=== PATIENT | male | born 1980 ===

== ENCOUNTER 2017-04-29 00:28 | Emergency (ER) | payer SELFPAY ==
[2017-04-29 00:39] VITALS: BP 131/81; PULSE 64; RESP 18; TEMP 98
--- NOTE | 2017-04-29 01:22 | ED PDOC ---
HPI: Skin/Bite Injury Time Seen by Provider: 04/29/17 00:42 Chief Complaint (Nursing): Headache Chief Complaint (Provider): scalp pain History Per: Patient History/Exam Limitations: no limitations Onset/Duration Of Symptoms: Days (1 month) Current Symptoms Are (Timing): Still Present Quality Of Symptoms: Painful Additional History Per: Patient Additional Complaint(s): 37 y/o male presents for eval of painful lump to right scalp x 1 month. Denies fever, nausea/vomiting, headache, dizziness, drainage from site, bleeding from site. No medication taken for pain relief thus far. Past Medical History Reviewed: Historical Data, Nursing Documentation, Vital Signs Vital Signs: Last Vital Signs Temp 98 F 04/29/17 00:36 Pulse 64 04/29/17 00:36 Resp 18 04/29/17 00:36 BP 131/81 04/29/17 00:36 Pulse Ox - Medical History PMH: HTN - Surgical History Surgical History: No Surg Hx - Family History Family History: States: Unknown Family Hx - Home Medications Home Medications: Ambulatory Orders Medication Instructions Recorded Mupirocin 2% Cream [Bactroban 1 applic TOP TID #1 tube 04/29/17 Cream] - Allergies Allergies/Adverse Reactions: Allergies Allergy/AdvReac Type Severity Reaction Status Date / Time No Known Allergies Allergy Verified 03/02/16 15:31 Review of Systems ROS Statement: Except As Marked, All Systems Reviewed And Found Negative Skin: Positive for: Lesions Physical Exam - Reviewed Nursing Documentation Reviewed: Yes Vital Signs Reviewed: Yes - Physical Exam Appears: Positive for: Well, Non-toxic, No Acute Distress Head Exam: Negative for: ATRAUMATIC (lesion/growth extending out from right parietal scalp surrounding hair follicle; scabbed central head; no fluctuance, bleeding noted. No surrounding scalp swelling, tenderness noted) Skin: Positive for: Normal Color Eye Exam: Positive for: Normal appearance ENT: Positive for: Normal ENT Inspection Cardiovascular/Chest: Positive for: Regular Rate, Rhythm Respiratory: Positive for: Normal Breath Sounds Neurologic/Psych: Positive for: Alert, Oriented - Progress ED Course And Treament: ibuprofen PO Patient educated on findings, advised follow up with Dermatology for further eval. Rx trial Mupirocin given for possible folliculitis. Advised tylenol/ibuprofen PRN pain. Return to ED for worsening/concerning symptoms. Disposition - Clinical Impression Clinical Impression: Skin lesion of scalp - Patient ED Disposition Is Patient to be Admitted: No Counseled Patient/Family Regarding: Diagnosis, Need For Followup, Rx Given - Disposition Referrals: [facility] [Outside] Disposition: Routine/Home Disposition Time: 01:37 Condition: GOOD Additional Instructions: Seguimiento con un dermatlogo Prescriptions: Mupirocin 2% Cream [Bactroban Cream] 1 applic TOP TID #1 tube
== END 2017-04-29 01:55 | disposition home or self-care (01) ==
LOC: H.ER 00:28
DX: L98.9 Disorder of the skin and subcutaneous tissue, unspecified (principal)